=== PATIENT | male | born 1975 | race Caucasian/White ===

== ENCOUNTER 2024-09-30 13:26 | Outpatient (CLI) | payer OTHER, SELFPAY ==
--- NOTE | 2024-09-30 14:00 | CRLHL7_ITS ---
For Patients: As a result of the Century Cures Act, medical imaging exams and procedure reports are released immediately into your electronic medical record. You may view this report before your referring provider. If you have questions, please contact your health care provider. INDICATION: Stage II chronic renal disease. COMPARISON: None. TECHNIQUE: Ultrasound examination of the kidneys bilateral; duplex ultrasound evaluation renal arteries bilateral; color Doppler duplex assessment. FINDINGS: The right kidney measures 10 x 5.6 x 5.2 cm and the left kidney measures 12.4 x 4.7 x 5.6 cm. Normal echogenicity of the renal cortex bilaterally. Normal thickness of the renal cortex bilaterally measuring 1.4 cm on the right and 1.6 cm on the left. Single renal artery identified on each side. Suboptimal visualization of the origin of the left renal artery secondary to increased bowel gas in the upper abdomen. Peak systolic velocity within the juxtarenal abdominal aorta measures 140 cm/second. Peak systolic velocity within the right renal artery measures 95 cm/second and the left renal artery 145 cm/second with a calculated renal artery to aortic ratio of 0.8 on the right and 1.2 on the left. The acceleration indices and resistive indices are normal bilaterally. IMPRESSION: 1. Technically difficult examination secondary to increased bowel gas in the upper abdomen. 2. Normal ultrasound examination of the kidneys bilaterally. 3. No sonographic evidence for hemodynamically significant renal artery stenosis on either side. Dictated by Sherrie Baum MD @ 10/01/2024 8:18:58 AM (Electronically Signed)
== END 2024-09-30 13:27 | disposition home or self-care (01) ==
LOC: US 13:27
PROVIDERS: PCP Family Medicine; Visit Provider Family Medicine
DX: I10 Essential (primary) hypertension (principal); N18.2 Chronic kidney disease, stage 2 (mild)
CPT/HCPCS: 76775; 93975